=== PATIENT | female | born 1990 | race Caucasian/White ===

== ENCOUNTER → 2017-07-08 | Outpatient (CLI) | payer OTHER ==
[2017-07-08 19:24] LABS: THYROXINE (T4) 8.2 UG/DL (4.5-12.0)
[2017-07-10 12:42] LABS: PROGESTERONE 0.4 NG/ML
== END ==
LOC: M SMT 14:01
PROVIDERS: ATTEND Advanced Practice Midwife
DX: R68.82 Decreased libido (principal)

== ENCOUNTER → 2017-07-10 | Outpatient (CLI) | payer OTHER ==
--- NOTE | 2017-07-10 16:48 | REP ---
PELVIC ULTRASOUND: Real-time sonographic evaluation of the pelvis performed utilizing transabdominal and endovaginal technique. The bladder measures 6.3 x 3.5 x 8.4 cm. The uterus measures 9.1 x 3.5 x 7.2 cm. Endometrial thickness is 3 mm. IUD is in the endometrial canal. Right ovary measures 4.2 x 2.6 x 3.0 cm. A dominant follicle in the right ovary measures 2.2 x 1.9 x 2.4 cm. The left ovary measures 3.5 x 2.0 x 2.1 cm. There is no adnexal mass or free fluid. There is blood flow seen in each ovary with duplex Doppler evaluation with no torsion. IMPRESSION: IUD in the endometrial canal. Dominant follicle right ovary. Signed by Israel Crisostomo MD 07/13/2017 09:54 A
== END ==
LOC: M RAD 13:40
PROVIDERS: ATTEND Advanced Practice Midwife
DX: Z30.8 Encounter for other contraceptive management (principal)